=== PATIENT | female | born 1940 | race Caucasian/White ===

== ENCOUNTER 2019-04-29 04:00 | Inpatient (IN) | payer MEDICARE, MEDICAID ==
[~2019-04-29] VITALS: Ht 172.7 cm; Wt 101.5 kg
[2019-04-29] MEDS ORDERED: LACTC PO (04:16)
[2019-04-29] MEDS ORDERED: AMOX500C2 PO (04:25)
[2019-04-29] MEDS ORDERED: POTA-82 PO (04:25)
[2019-04-29] MEDS ORDERED: SENN-25 PO (04:25)
[2019-04-29] MEDS ORDERED: SENN-162 PO (04:25)
[2019-04-29] MEDS ORDERED: AZIT-63 PO (04:25)
[2019-04-29] MEDS ORDERED: SERT25TA PO (04:25)
[2019-04-29] MEDS ORDERED: RIVA15TA PO (04:25)
[2019-04-29] MEDS ORDERED: XAL0.005OS EACHEYE (04:25)
[2019-04-29] MEDS ORDERED: ASCO500T8 PO (04:25)
[2019-04-29] MEDS ORDERED: MULT-933 PO (04:25)
--- NOTE | 2019-04-29 04:40 | NUR ---
pt denies new complaint. states she just feels tired and weak but has felt this way for so long she can't remember the last time she felt normal. lights are dimmed and warm blankets given. will continue to monitor
[2019-04-29] MEDS ORDERED: ATOR40TA PO (04:54)
[2019-04-29] MEDS ORDERED: CARB1TAB23 PO (04:54)
[2019-04-29] MEDS ORDERED: LEVO75TA7 PO (04:54)
[2019-04-29] MEDS ORDERED: FURO-149 PO (04:54)
[2019-04-29] MEDS ORDERED: FOLI0.4T2 PO (04:54)
[2019-04-29] MEDS ORDERED: FERR325T28 PO (04:54)
[2019-04-29] MEDS ORDERED: DOCU-169 PO (04:54)
[2019-04-29] MEDS ORDERED: GUAI200T5 PO (04:54)
[2019-04-29] MEDS ORDERED: CYAN250T PO (04:54)
[2019-04-29] MEDS ORDERED: IPRA3AMP9 IH (04:54)
[2019-04-29] MEDS ORDERED: ipratropium/albuterol 3ml nebule IH PRN (05:05)
--- NOTE | 2019-04-29 05:09 | NUR ---
PT RESTING INTERMITTENTLY. SHE HAS PRODUCTIVE COUGH. WILL SPEAK TO MD ABOUT POSSIBLE COUGH SUPRESSENT.
[2019-04-29] MEDS ORDERED: magnesium hydroxide 30ml (MOM) UD suspension PO PRN (05:10)
[2019-04-29] MEDS ORDERED: morphine 2 MG/ML inj. syringe IV PRN (05:10)
[2019-04-29] MEDS ORDERED: ondansetron/PF 4mg/2ml inj IV PRN (05:10)
[2019-04-29] MEDS ORDERED: mag hydrox/Alum hydrox/simeth 30ml oral suspension PO PRN (05:10)
[2019-04-29] MEDS ORDERED: acetaminophen 325mg tablet PO PRN (05:10)
[2019-04-29 05:22] LABS: BASOPHILS % (AUTO) 0.3 % (0-1); EOSINOPHILS # (AUTO) 0.1 X10'3 (0-0.9); EOSINOPHILS % (AUTO) 1.1 % (0-6); HEMOGLOBIN 11.7 g/dl (12.0-16.0); LYMPHOCYTES % (AUTO) 9.6 % (21-51); MEAN CORPUSCULAR HEMOGLOBIN 31.5 PG (27.0-31.0); MEAN CORPUSCULAR HGB CONC 34.3 g/dL (33.0-36.5); MEAN CORPUSCULAR VOLUME 91.9 FL (78-98); MEAN PLATELET VOLUME 11.1 FL (7.4-10.4); MONOCYTES % (AUTO) 10.1 % (2-12); NEUTROPHILS # (AUTO) 8.1 X10'3 (1.8-7.7); NEUTROPHILS % (AUTO) 78.9 % (42-75); PLATELET COUNT 178 X10'3 (140-440); RED CELL DISTRIBUTION WIDTH 15.2 % (11.5-14.5); WHITE BLOOD COUNT 10.2 X10'3 (4.5-11.0)
[2019-04-29] MEDS ORDERED: benzonatate 100mg capsule PO ONE (05:25)
[2019-04-29 05:36] LABS: ALANINE AMINOTRANSFERASE 18 U/L (12-78); ALBUMIN 3.1 G/DL (3.4-5.0); ALBUMIN/GLOBULIN RATIO 0.8 (1.1-1.5); ALKALINE PHOSPHATASE 125 IU/L (46-116); ANION GAP 10 (8-16); ASPARTATE AMINO TRANSFERASE 29 U/L (10-37); BILIRUBIN,TOTAL 0.6 MG/DL (0.1-1.0); BLOOD UREA NITROGEN 26 MG/DL (7-18); BUN/CREATININE RATIO 19.8 (6.6-38.0); CALCIUM 8.2 MG/DL (8.5-10.1); CHLORIDE 106 MMOL/L (99-107); CREATININE 1.31 MG/DL (0.40-0.90); GLUCOSE 126 MG/DL (70-104); POTASSIUM 4.3 MMOL/L (3.5-5.1); SODIUM 139 MMOL/L (135-145); TOTAL CARBON DIOXIDE 22.6 MMOL/L (24-32); TOTAL PROTEIN 7.1 G/DL (6.4-8.2); eGFR 39 ML/MIN
--- NOTE | 2019-04-29 05:36 | NUR ---
Rec'd report from AMALIA Motta in the ER.
[2019-04-29 05:52] LABS: LARGE PLATELETS FEW; PLATELET ESTIMATE NORMAL
--- NOTE | 2019-04-29 05:59 | NUR ---
Patient arrived from ER on [facility] and transferred to hospital bed using a slide board. She is A&O x3 and is appropriate, she has a moist cough and it weak.
--- NOTE | 2019-04-29 06:00 | NUR ---
Patient in room PCU 3022. I have received report from Rekha HOLLAND and had the opportunity to ask questions and assume patient care.
[2019-04-29 06:01] VITALS: BP 164/47
--- NOTE | 2019-04-29 06:26 | NUR ---
Problems reprioritized. Patient report given, questions answered & plan of care reviewed with AMALIA Das.
--- NOTE | 2019-04-29 07:14 | NUR ---
Paged KWABENA nurse to KWABENA patient
[2019-04-29] MEDS: carbidoba-levodopa 25-100mg tablet PO SCH ×3 (07:30→17:46)
[2019-04-29] MEDS ORDERED: rivaroxaban 15mg tablet PO SCH (08:00)
[2019-04-29] MEDS: docusate sod 100mg capsule PO SCH (08:00)
[2019-04-29] MEDS: sennosides 8.6mg tablet PO SCH ×2 (08:00→20:37)
[2019-04-29] MEDS: guaiFENesin ER 600mg tablet PO SCH ×2 (09:14→20:37)
[2019-04-29] MEDS: multivitamins, therapeutics tablet PO SCH (09:14)
[2019-04-29] MEDS: potassium Cl 20 mEq SR tablet PO SCH (09:15)
[2019-04-29] MEDS: lactobacillus rhamnosus 10,000 MMU CELLS/CAPSULE PO SCH ×2 (09:17→20:37)
[2019-04-29] MEDS: cyanocobalamin 500mcg tablet PO SCH (09:17)
[2019-04-29] MEDS: folic acid 0.4mg tablet PO SCH (09:18)
[2019-04-29] MEDS: furosemide 40mg tablet PO SCH (09:19)
[2019-04-29] MEDS: levoTHYROXINE 75mcg tablet PO SCH (09:19)
[2019-04-29] MEDS: ferrous sulfate 325mg tablet PO SCH (09:19)
[2019-04-29] MEDS: ascorbic acid 500mg tablet PO SCH (09:20)
[2019-04-29] MEDS: sertraline 25mg tablet PO SCH (09:24)
[2019-04-29] MEDS: amoxicillin 250mg capsule PO SCH ×2 (09:24→14:11)
[2019-04-29 11:00] VITALS: BP 141/52
[2019-04-29 15:00] VITALS: BP 140/49
[2019-04-29] MEDS ORDERED: ipratropium/albuterol 3ml nebule NEB PRN (15:10)
[2019-04-29] MEDS: CefTRIAXone 2gm/D5W 50ml 50 ML IV SCH (17:46)
[2019-04-29 18:00] VITALS: BP 122/41
--- NOTE | 2019-04-29 18:30 | NUR ---
Patient in room PCU 3022. I have received report from Kylee and had the opportunity to ask questions and assume patient care. Family at bedside. Pt lying in bed in no distress. A&Ox4.
--- NOTE | 2019-04-29 18:46 | NUR ---
Problems reprioritized. Patient report given, questions answered & plan of care reviewed with Rekha HOLLAND and Mignon RN.
--- NOTE | 2019-04-29 18:47 | NUR ---
Patient in room PCU 3022. I have received report from AMALIA Pichardo and had the opportunity to ask questions and assume patient care. Patient resting comfortable on hospital bed, family at bedside.
[2019-04-29] MEDS: atorvastatin 20mg tablet PO SCH (20:37)
[2019-04-29] MEDS: enoxaparin 80mg/0.8ml syringe SUBCUT SCH (20:38)
[2019-04-29] MEDS: latanoprost 0.005% 2.5ml ophthalmic drops EACHEYE SCH (21:00)
[2019-04-29 22:00] VITALS: BP 115/50
[2019-04-29] MEDS: ipratropium/albuterol 3ml nebule NEB SCH (22:13)
[2019-04-30 02:00] VITALS: BP 122/44
[2019-04-30 05:29] LABS: BASOPHILS % (AUTO) 0.5 % (0-1); EOSINOPHILS # (AUTO) 0.2 X10'3 (0-0.9); HEMATOCRIT 32.9 % (35.0-45.0); HEMOGLOBIN 11.2 g/dl (12.0-16.0); LYMPHOCYTES # (AUTO) 1.1 X10'3 (1.1-4.8); LYMPHOCYTES % (AUTO) 15.4 % (21-51); MEAN CORPUSCULAR HEMOGLOBIN 31.2 PG (27.0-31.0); MEAN CORPUSCULAR VOLUME 91.9 FL (78-98); MEAN PLATELET VOLUME 10.6 FL (7.4-10.4); MONOCYTES # (AUTO) 0.7 X10'3 (0-0.9); MONOCYTES % (AUTO) 9.7 % (2-12); NEUTROPHILS # (AUTO) 5.2 X10'3 (1.8-7.7); NEUTROPHILS % (AUTO) 71.4 % (42-75); PLATELET COUNT 185 X10'3 (140-440); RED BLOOD COUNT 3.58 X10'6 (4.20-5.60); WHITE BLOOD COUNT 7.3 X10'3 (4.5-11.0)
[2019-04-30 05:38] LABS: CHLORIDE 109 MMOL/L (99-107); GLUCOSE 97 MG/DL (70-104); POTASSIUM 3.9 MMOL/L (3.5-5.1); SODIUM 144 MMOL/L (135-145); TOTAL CARBON DIOXIDE 25.4 MMOL/L (24-32)
[2019-04-30 05:39] LABS: ALBUMIN 2.8 G/DL (3.4-5.0); ANION GAP 10 (8-16); BLOOD UREA NITROGEN 23 MG/DL (7-18); BUN/CREATININE RATIO 17.3 (6.6-38.0); CALCIUM 8.6 MG/DL (8.5-10.1); CREATININE 1.33 MG/DL (0.40-0.90); MAGNESIUM 2.1 MG/DL (1.5-2.4); eGFR 38 ML/MIN
[2019-04-30 06:00] VITALS: BP 121/61
--- NOTE | 2019-04-30 06:14 | NUR ---
Problems reprioritized. Patient report given, questions answered & plan of care reviewed with AMALIA Pichardo.
--- NOTE | 2019-04-30 06:25 | NUR ---
Patient in room PCU 3022. I have received report from Rekha RN and Mignon RN and had the opportunity to ask questions and assume patient care.
[2019-04-30] MEDS: cyanocobalamin 500mcg tablet PO SCH (07:29)
[2019-04-30] MEDS: CefTRIAXone 2gm/D5W 50ml 50 ML IV SCH (07:29)
[2019-04-30] MEDS: levoTHYROXINE 75mcg tablet PO SCH (07:30)
[2019-04-30] MEDS: lactobacillus rhamnosus 10,000 MMU CELLS/CAPSULE PO SCH ×2 (07:30→20:21)
[2019-04-30] MEDS: multivitamins, therapeutics tablet PO SCH (07:31)
[2019-04-30] MEDS: guaiFENesin ER 600mg tablet PO SCH ×2 (07:31→20:20)
[2019-04-30] MEDS: sertraline 25mg tablet PO SCH (07:31)
[2019-04-30] MEDS: carbidoba-levodopa 25-100mg tablet PO SCH ×3 (07:31→17:49)
[2019-04-30] MEDS: ascorbic acid 500mg tablet PO SCH (07:31)
[2019-04-30] MEDS: furosemide 40mg tablet PO SCH (07:31)
[2019-04-30] MEDS: ferrous sulfate 325mg tablet PO SCH (07:31)
[2019-04-30] MEDS: folic acid 0.4mg tablet PO SCH (07:31)
[2019-04-30] MEDS: sennosides 8.6mg tablet PO SCH ×2 (07:54→21:00)
[2019-04-30] MEDS: docusate sod 100mg capsule PO SCH (07:54)
[2019-04-30] MEDS: enoxaparin 80mg/0.8ml syringe SUBCUT SCH ×2 (07:54→20:20)
[2019-04-30] MEDS: ipratropium/albuterol 3ml nebule NEB SCH ×3 (08:40→20:25)
[2019-04-30 08:43] LABS: LARGE PLATELETS FEW; PLATELET ESTIMATE NORMAL
[2019-04-30 11:00] VITALS: BP 138/40
[2019-04-30 15:00] VITALS: BP 144/36
--- NOTE | 2019-04-30 18:30 | NUR ---
Patient in room PCU 3022. I have received report from Kylee HOLLAND and had the opportunity to ask questions and assume patient care.
[2019-04-30 19:00] VITALS: BP 138/38
--- NOTE | 2019-04-30 19:02 | NUR ---
04/29/19 late afternoon, patient's daughter at bedside with MD present to discuss code status. Patient and family considering limited code. Patient verbalized fear of injury during chest compressions which had put her off of choosing to be a full code. Patient and family was educated on the different code statuses and provided with educational materials. MD gave verbal ok to keep patient on defib pads with zole at bedside. Patient and family was encouraged to take their time in making a decision on code status and has still been DNR since this conversation. Family was present at bedside throughout today, 04/30. Neither patient nor family re-opened conversation regarding code status.
--- NOTE | 2019-04-30 19:08 | NUR ---
Problems reprioritized. Patient report given, questions answered & plan of care reviewed with Robe RN.
[2019-04-30] MEDS: atorvastatin 20mg tablet PO SCH (20:21)
[2019-04-30] MEDS: latanoprost 0.005% 2.5ml ophthalmic drops EACHEYE SCH (21:00)
[2019-04-30 23:00] VITALS: BP 118/43
[2019-05-01] VITALS (13 sets, daily range): BP systolic 117–163; BP diastolic 46–66
[2019-05-01 06:06] LABS: BASOPHILS % (AUTO) 0.5 % (0-1); EOSINOPHILS # (AUTO) 0.2 X10'3 (0-0.9); EOSINOPHILS % (AUTO) 2.5 % (0-6); HEMATOCRIT 34.8 % (35.0-45.0); HEMOGLOBIN 11.6 g/dl (12.0-16.0); LYMPHOCYTES # (AUTO) 0.9 X10'3 (1.1-4.8); LYMPHOCYTES % (AUTO) 12.1 % (21-51); MEAN CORPUSCULAR HEMOGLOBIN 30.9 PG (27.0-31.0); MEAN CORPUSCULAR HGB CONC 33.3 g/dL (33.0-36.5); MEAN CORPUSCULAR VOLUME 92.6 FL (78-98); MEAN PLATELET VOLUME 10.6 FL (7.4-10.4); MONOCYTES # (AUTO) 0.8 X10'3 (0-0.9); MONOCYTES % (AUTO) 10.8 % (2-12); NEUTROPHILS # (AUTO) 5.4 X10'3 (1.8-7.7); NEUTROPHILS % (AUTO) 74.1 % (42-75); PLATELET COUNT 191 X10'3 (140-440); RED BLOOD COUNT 3.75 X10'6 (4.20-5.60); RED CELL DISTRIBUTION WIDTH 15.2 % (11.5-14.5); WHITE BLOOD COUNT 7.2 X10'3 (4.5-11.0)
--- NOTE | 2019-05-01 06:10 | NUR ---
Problems reprioritized. Patient report given, questions answered & plan of care reviewed with Nay HOLLAND.
[2019-05-01 06:38] LABS: LARGE PLATELETS FEW; PLATELET ESTIMATE NORMAL
--- NOTE | 2019-05-01 06:38 | NUR ---
Patient in room PCU 3022. I have received report from Robe RN and had the opportunity to ask questions and assume patient care.
[2019-05-01 06:39] LABS: ELLIPTOCYTES 1+
[2019-05-01 07:07] LABS: ALBUMIN 2.8 G/DL (3.4-5.0); ANION GAP 11 (8-16); BLOOD UREA NITROGEN 20 MG/DL (7-18); BUN/CREATININE RATIO 16.3 (6.6-38.0); CALCIUM 8.2 MG/DL (8.5-10.1); CHLORIDE 107 MMOL/L (99-107); CREATININE 1.23 MG/DL (0.40-0.90); GLUCOSE 100 MG/DL (70-104); POTASSIUM 3.7 MMOL/L (3.5-5.1); SODIUM 143 MMOL/L (135-145); TOTAL CARBON DIOXIDE 24.9 MMOL/L (24-32); eGFR 42 ML/MIN
[2019-05-01] MEDS: docusate sod 100mg capsule PO SCH (08:00)
[2019-05-01] MEDS: sennosides 8.6mg tablet PO SCH ×2 (08:00→21:57)
[2019-05-01] MEDS: CefTRIAXone 2gm/D5W 50ml 50 ML IV SCH (08:04)
[2019-05-01] MEDS: carbidoba-levodopa 25-100mg tablet PO SCH ×3 (08:05→22:02)
[2019-05-01] MEDS: furosemide 40mg tablet PO SCH (08:05)
[2019-05-01] MEDS: multivitamins, therapeutics tablet PO SCH (08:05)
[2019-05-01] MEDS: ferrous sulfate 325mg tablet PO SCH (08:06)
[2019-05-01] MEDS: potassium Cl 20 mEq SR tablet PO SCH (08:06)
[2019-05-01] MEDS: sertraline 25mg tablet PO SCH (08:06)
[2019-05-01] MEDS: cyanocobalamin 500mcg tablet PO SCH (08:06)
[2019-05-01] MEDS: guaiFENesin ER 600mg tablet PO SCH ×2 (08:06→21:55)
[2019-05-01] MEDS: levoTHYROXINE 75mcg tablet PO SCH (08:07)
[2019-05-01] MEDS: ascorbic acid 500mg tablet PO SCH (08:07)
[2019-05-01] MEDS: folic acid 0.4mg tablet PO SCH (08:09)
[2019-05-01] MEDS: lactobacillus rhamnosus 10,000 MMU CELLS/CAPSULE PO SCH ×2 (08:10→21:56)
[2019-05-01] MEDS: enoxaparin 80mg/0.8ml syringe SUBCUT SCH ×2 (08:13→21:55)
[2019-05-01] MEDS: ipratropium/albuterol 3ml nebule NEB SCH ×3 (09:11→21:22)
--- NOTE | 2019-05-01 10:36 | NUR ---
Spoke with Dr. Hdz regarding patient's decision to move forward with receiving pacemaker. Lovenox to now be held.
[2019-05-01 15:45] LABS: PARTIAL THROMBOPLASTIN TIME 37 SECONDS (22-32)
[2019-05-01] MEDS ORDERED: LIDOcaine 1% W/epiNEPHrine 1:100,000 20ml vial ONE (16:20)
[2019-05-01] MEDS ORDERED: midazolam 2 mg/2 ml injection ONE ×2 (16:20→17:28)
[2019-05-01] MEDS ORDERED: ceFAZolin 1000mg inj ONE (16:20)
[2019-05-01] MEDS ORDERED: fentaNYL/PF 50MCG/1 ML 2ML syringe ONE (16:20)
--- NOTE | 2019-05-01 17:15 | NUR ---
Problems reprioritized. Patient report given, questions answered & plan of care reviewed with Louisa HOLLAND.
[2019-05-01] MEDS ORDERED: iohexol 350 MG/ML 50ML vial IV ONE (17:19)
[2019-05-01] MEDS: morphine 2 MG/ML inj. syringe IV PRN ×2 (19:20→22:04)
[2019-05-01] MEDS: latanoprost 0.005% 2.5ml ophthalmic drops EACHEYE SCH (21:00)
[2019-05-01] MEDS: atorvastatin 20mg tablet PO SCH (21:56)
[2019-05-01] MEDS ORDERED: normal saline 500ml IV soln 500 ML IV ONE (22:30)
[2019-05-01] MEDS ORDERED: vancomycin/NS 1 GM ADD-VANTAGE 250 ML X 1 DOSE IV ONE (22:30)
[2019-05-01] MEDS: HYDROcodone/acetaminophen 10/325mg tab PO PRN (22:34)
[2019-05-02] VITALS (8 sets, daily range): BP systolic 99–152; BP diastolic 44–67
[2019-05-02] MEDS: morphine 2 MG/ML inj. syringe IV PRN ×2 (00:05→08:39)
[2019-05-02 04:55] LABS: ALBUMIN 2.7 G/DL (3.4-5.0); ANION GAP 9 (8-16); BLOOD UREA NITROGEN 16 MG/DL (7-18); BUN/CREATININE RATIO 13.2 (6.6-38.0); CALCIUM 8.4 MG/DL (8.5-10.1); CHLORIDE 107 MMOL/L (99-107); CREATININE 1.21 MG/DL (0.40-0.90); GLUCOSE 118 MG/DL (70-104); MAGNESIUM 1.8 MG/DL (1.5-2.4); POTASSIUM 3.6 MMOL/L (3.5-5.1); SODIUM 141 MMOL/L (135-145); TOTAL CARBON DIOXIDE 24.7 MMOL/L (24-32); eGFR 43 ML/MIN
[2019-05-02 04:59] LABS: BASOPHILS % (AUTO) 0.2 % (0-1); EOSINOPHILS % (AUTO) 0.2 % (0-6); HEMATOCRIT 33.6 % (35.0-45.0); HEMOGLOBIN 11.4 g/dl (12.0-16.0); LYMPHOCYTES # (AUTO) 0.5 X10'3 (1.1-4.8); LYMPHOCYTES % (AUTO) 4.8 % (21-51); MEAN CORPUSCULAR HEMOGLOBIN 30.8 PG (27.0-31.0); MEAN CORPUSCULAR VOLUME 90.5 FL (78-98); MEAN PLATELET VOLUME 9.8 FL (7.4-10.4); MONOCYTES % (AUTO) 9.3 % (2-12); NEUTROPHILS # (AUTO) 9.6 X10'3 (1.8-7.7); NEUTROPHILS % (AUTO) 85.5 % (42-75); PLATELET COUNT 204 X10'3 (140-440); RED BLOOD COUNT 3.71 X10'6 (4.20-5.60); RED CELL DISTRIBUTION WIDTH 14.7 % (11.5-14.5); WHITE BLOOD COUNT 11.3 X10'3 (4.5-11.0)
[2019-05-02] MEDS: nystatin 15 GM powder TP PRN ×2 (05:30→20:43)
--- NOTE | 2019-05-02 06:10 | NUR ---
Patient in room MED 313. I have received report from Linus HOLLAND and Page HOLLAND and had the opportunity to ask questions and assume patient care.
--- NOTE | 2019-05-02 06:31 | NUR ---
Problems reprioritized. Patient report given, questions answered & plan of care reviewed with Marisela HOLLAND.
--- NOTE | 2019-05-02 06:33 | NUR ---
[place]rientee documentation: I have reviewed and agree with all interventions, assessments performed and documented by Page HOLLAND .
--- NOTE | 2019-05-02 06:34 | NUR ---
Problems reprioritized. Patient report given, questions answered & plan of care reviewed with Rivas HOLLAND.
[2019-05-02] MEDS: ipratropium/albuterol 3ml nebule NEB SCH ×3 (06:48→20:58)
[2019-05-02] MEDS: enoxaparin 80mg/0.8ml syringe SUBCUT SCH (08:00)
[2019-05-02] MEDS: CefTRIAXone 2gm/D5W 50ml 50 ML IV SCH (08:40)
[2019-05-02] MEDS: cyanocobalamin 500mcg tablet PO SCH (08:41)
[2019-05-02] MEDS: ascorbic acid 500mg tablet PO SCH (08:42)
[2019-05-02] MEDS: sennosides 8.6mg tablet PO SCH ×2 (08:42→20:43)
[2019-05-02] MEDS: folic acid 1mg tablet PO SCH (08:42)
[2019-05-02] MEDS: carbidoba-levodopa 25-100mg tablet PO SCH ×3 (08:42→17:34)
[2019-05-02] MEDS: multivitamins, therapeutics tablet PO SCH (08:42)
[2019-05-02] MEDS: lactobacillus rhamnosus 10,000 MMU CELLS/CAPSULE PO SCH ×2 (08:42→20:43)
[2019-05-02] MEDS: guaiFENesin ER 600mg tablet PO SCH ×2 (08:43→20:43)
[2019-05-02] MEDS: levoTHYROXINE 75mcg tablet PO SCH (08:43)
[2019-05-02] MEDS: sertraline 25mg tablet PO SCH (08:43)
[2019-05-02] MEDS: docusate sod 100mg capsule PO SCH (08:43)
[2019-05-02] MEDS: furosemide 40mg tablet PO SCH (08:43)
[2019-05-02] MEDS: ferrous sulfate 325mg tablet PO SCH (08:43)
--- NOTE | 2019-05-02 10:30 | NUR ---
DISCHARGE FOLLOW-UP APPOINTMENTS DR. GRANT 05/07/19 @ 1415 FOR SUTURE REMOVAL; 06/03/19 @ 1015 FOR 1 MONTH PPM CHECK; 08/04/2019 @ 1045 FOR 3 MONTH PPM CHECK
[2019-05-02] MEDS: HYDROcodone/acetaminophen 10/325mg tab PO PRN (13:47)
--- NOTE | 2019-05-02 13:56 | NUR ---
Patient in room MED 313. I have received report from Keyana HOLLAND and had the opportunity to ask questions and assume patient care. Addendum: 05/02/19 at 1357 by Marisela Guido RN ERROR- wrong patient chart
--- NOTE | 2019-05-02 18:10 | NUR ---
Problems reprioritized. Patient report given, questions answered & plan of care reviewed with Linus RN and Page HOLLAND.
--- NOTE | 2019-05-02 18:20 | NUR ---
Patient in room MED 313. I have received report from Marisela HOLLAND and had the opportunity to ask questions and assume patient care.
--- NOTE | 2019-05-02 20:23 | NUR ---
Patient in room MED 313. I have received report from Rosa HOLLAND and had the opportunity to ask questions and assume patient care. Addendum: 05/02/19 at 2026 by Linus Henriquez RN Report received from Marisela HOLLAND
[2019-05-02] MEDS: atorvastatin 20mg tablet PO SCH (20:43)
[2019-05-02] MEDS: latanoprost 0.005% 2.5ml ophthalmic drops EACHEYE SCH (21:00)
[2019-05-03 02:00] VITALS: BP 133/59
[2019-05-03 03:11] LABS: BASOPHILS % (AUTO) 0.4 % (0-1); EOSINOPHILS # (AUTO) 0.1 X10'3 (0-0.9); EOSINOPHILS % (AUTO) 2.1 % (0-6); HEMOGLOBIN 11.6 g/dl (12.0-16.0); LYMPHOCYTES # (AUTO) 0.9 X10'3 (1.1-4.8); LYMPHOCYTES % (AUTO) 12.5 % (21-51); MEAN CORPUSCULAR HGB CONC 33.9 g/dL (33.0-36.5); MEAN CORPUSCULAR VOLUME 91.3 FL (78-98); MEAN PLATELET VOLUME 9.3 FL (7.4-10.4); MONOCYTES # (AUTO) 0.7 X10'3 (0-0.9); MONOCYTES % (AUTO) 9.5 % (2-12); NEUTROPHILS # (AUTO) 5.3 X10'3 (1.8-7.7); NEUTROPHILS % (AUTO) 75.5 % (42-75); PLATELET COUNT 199 X10'3 (140-440); RED BLOOD COUNT 3.73 X10'6 (4.20-5.60); RED CELL DISTRIBUTION WIDTH 14.8 % (11.5-14.5); WHITE BLOOD COUNT 7.1 X10'3 (4.5-11.0)
[2019-05-03 03:18] LABS: ALBUMIN 2.8 G/DL (3.4-5.0); ANION GAP 10 (8-16); BLOOD UREA NITROGEN 18 MG/DL (7-18); BUN/CREATININE RATIO 14.5 (6.6-38.0); CALCIUM 8.3 MG/DL (8.5-10.1); CHLORIDE 105 MMOL/L (99-107); CREATININE 1.24 MG/DL (0.40-0.90); GLUCOSE 108 MG/DL (70-104); MAGNESIUM 1.8 MG/DL (1.5-2.4); POTASSIUM 3.4 MMOL/L (3.5-5.1); SODIUM 141 MMOL/L (135-145); TOTAL CARBON DIOXIDE 26.1 MMOL/L (24-32); eGFR 42 ML/MIN
[2019-05-03 06:00] VITALS: BP 131/60
--- NOTE | 2019-05-03 06:30 | NUR ---
Problems reprioritized. Patient report given, questions answered & plan of care reviewed with Silvia HOLLAND.
--- NOTE | 2019-05-03 06:33 | NUR ---
Problems reprioritized. Patient report given, questions answered & plan of care reviewed with Silvia HOLLAND.
--- NOTE | 2019-05-03 06:34 | NUR ---
[place] documentation: I have reviewed and agree with interventions, assessments performed and documented by Page Whatley .
--- NOTE | 2019-05-03 06:35 | NUR ---
[place] Medication Administration: For this medication-pass time frame medication were reviewed, dispensed, administered and documented per hospital policy by Page Whatley .
[2019-05-03] MEDS: HYDROcodone/acetaminophen 10/325mg tab PO PRN ×2 (08:31→22:38)
[2019-05-03] MEDS: CefTRIAXone 2gm/D5W 50ml 50 ML IV SCH (08:41)
[2019-05-03] MEDS: carbidoba-levodopa 25-100mg tablet PO SCH ×3 (08:41→21:42)
[2019-05-03] MEDS: ferrous sulfate 325mg tablet PO SCH (08:41)
[2019-05-03] MEDS: ascorbic acid 500mg tablet PO SCH (08:42)
[2019-05-03] MEDS: multivitamins, therapeutics tablet PO SCH (08:42)
[2019-05-03] MEDS: docusate sod 100mg capsule PO SCH (08:42)
[2019-05-03] MEDS: sennosides 8.6mg tablet PO SCH ×2 (08:42→20:29)
[2019-05-03] MEDS: sertraline 25mg tablet PO SCH (08:43)
[2019-05-03] MEDS: lactobacillus rhamnosus 10,000 MMU CELLS/CAPSULE PO SCH ×2 (08:43→20:29)
[2019-05-03] MEDS: folic acid 1mg tablet PO SCH (08:44)
[2019-05-03] MEDS: levoTHYROXINE 75mcg tablet PO SCH (08:44)
[2019-05-03] MEDS: potassium Cl 20 mEq SR tablet PO SCH (08:45)
[2019-05-03] MEDS: furosemide 40mg tablet PO SCH (08:45)
[2019-05-03] MEDS: guaiFENesin ER 600mg tablet PO SCH ×2 (08:46→20:29)
[2019-05-03] MEDS: cyanocobalamin 500mcg tablet PO SCH (09:03)
[2019-05-03] MEDS: ipratropium/albuterol 3ml nebule NEB SCH ×3 (09:13→19:13)
[2019-05-03 11:00] VITALS: BP 114/57
--- NOTE | 2019-05-03 12:17 | NUR ---
PAGER ID: [phone] MESSAGE: [phone]: [facility] - anxious to D/C back to [facility]. Wilder onofre for D/C, needs to be on abx x5 days post d/c. ty Silvia [phone]
[2019-05-03] MEDS: magnesium oxide 400mg tablet PO SCH ×2 (13:19→20:29)
[2019-05-03] MEDS: HYDROcodone/acetaminophen 5mg/325mg tablet PO PRN (13:24)
[2019-05-03 15:00] VITALS: BP 113/57
[2019-05-03] MEDS: rivaroxaban 15mg tablet PO SCH (15:29)
--- NOTE | 2019-05-03 18:00 | NUR ---
Problems reprioritized. Patient report given, questions answered & plan of care reviewed with AMALIA Moreno.
--- NOTE | 2019-05-03 18:00 | NUR ---
Patient in room MED 313. I have received report from Silvia HOLLAND and had the opportunity to ask questions and assume patient care.
[2019-05-03 18:45] VITALS: BP 113/57
[2019-05-03] MEDS: atorvastatin 20mg tablet PO SCH (20:29)
[2019-05-03] MEDS: latanoprost 0.005% 2.5ml ophthalmic drops EACHEYE SCH (21:00)
[2019-05-03 22:00] VITALS: BP 112/48
[2019-05-04 02:00] VITALS: BP 113/45
[2019-05-04 04:57] LABS: BASOPHILS % (AUTO) 0.5 % (0-1); EOSINOPHILS # (AUTO) 0.3 X10'3 (0-0.9); EOSINOPHILS % (AUTO) 4.6 % (0-6); HEMATOCRIT 33.5 % (35.0-45.0); HEMOGLOBIN 11.4 g/dl (12.0-16.0); LYMPHOCYTES # (AUTO) 0.9 X10'3 (1.1-4.8); MEAN CORPUSCULAR HEMOGLOBIN 30.9 PG (27.0-31.0); MEAN CORPUSCULAR HGB CONC 34.1 g/dL (33.0-36.5); MEAN CORPUSCULAR VOLUME 90.7 FL (78-98); MEAN PLATELET VOLUME 9.4 FL (7.4-10.4); MONOCYTES # (AUTO) 0.7 X10'3 (0-0.9); MONOCYTES % (AUTO) 10.3 % (2-12); NEUTROPHILS # (AUTO) 4.6 X10'3 (1.8-7.7); NEUTROPHILS % (AUTO) 70.6 % (42-75); PLATELET COUNT 212 X10'3 (140-440); RED BLOOD COUNT 3.69 X10'6 (4.20-5.60); RED CELL DISTRIBUTION WIDTH 14.8 % (11.5-14.5); WHITE BLOOD COUNT 6.6 X10'3 (4.5-11.0)
[2019-05-04 05:07] LABS: ALBUMIN 2.6 G/DL (3.4-5.0); ANION GAP 8 (8-16); BLOOD UREA NITROGEN 20 MG/DL (7-18); BUN/CREATININE RATIO 16.4 (6.6-38.0); CALCIUM 8.2 MG/DL (8.5-10.1); CHLORIDE 106 MMOL/L (99-107); CREATININE 1.22 MG/DL (0.40-0.90); GLUCOSE 95 MG/DL (70-104); POTASSIUM 3.6 MMOL/L (3.5-5.1); SODIUM 141 MMOL/L (135-145); eGFR 42 ML/MIN
[2019-05-04 06:00] VITALS: BP 121/46
--- NOTE | 2019-05-04 06:00 | NUR ---
Problems reprioritized. Patient report given, questions answered & plan of care reviewed with Milagros RN's.
--- NOTE | 2019-05-04 06:05 | NUR ---
Patient in room MED 307. I have received report from AMALIA Moreno and had the opportunity to ask questions and assume patient care. Addendum: 05/04/19 at 1659 by Louisa Murray RN Room [facility]
[2019-05-04] MEDS: ipratropium/albuterol 3ml nebule NEB SCH ×3 (08:39→20:33)
[2019-05-04] MEDS: lactobacillus rhamnosus 10,000 MMU CELLS/CAPSULE PO SCH ×2 (08:43→20:20)
[2019-05-04] MEDS: folic acid 1mg tablet PO SCH (08:43)
[2019-05-04] MEDS: ferrous sulfate 325mg tablet PO SCH (08:43)
[2019-05-04] MEDS: CefTRIAXone 2gm/D5W 50ml 50 ML IV SCH (08:43)
[2019-05-04] MEDS: carbidoba-levodopa 25-100mg tablet PO SCH ×3 (08:43→17:46)
[2019-05-04] MEDS: docusate sod 100mg capsule PO SCH (08:43)
[2019-05-04] MEDS: cyanocobalamin 500mcg tablet PO SCH (08:44)
[2019-05-04] MEDS: furosemide 40mg tablet PO SCH (08:44)
[2019-05-04] MEDS: multivitamins, therapeutics tablet PO SCH (08:44)
[2019-05-04] MEDS: sertraline 25mg tablet PO SCH (08:44)
[2019-05-04] MEDS: sennosides 8.6mg tablet PO SCH ×2 (08:44→20:20)
[2019-05-04] MEDS: levoTHYROXINE 75mcg tablet PO SCH (08:44)
[2019-05-04] MEDS: rivaroxaban 15mg tablet PO SCH (08:44)
[2019-05-04] MEDS: guaiFENesin ER 600mg tablet PO SCH ×2 (08:44→20:20)
[2019-05-04] MEDS: ascorbic acid 500mg tablet PO SCH (08:44)
[2019-05-04] MEDS: magnesium oxide 400mg tablet PO SCH ×3 (08:45→21:00)
[2019-05-04 11:00] VITALS: BP 124/54
--- NOTE | 2019-05-04 11:07 | NUR ---
PAGER ID: [phone] MESSAGE: [phone] [facility] - d/c to SNF is time sensitive. counter caser is checking w/ facility if there is a cut-off time for admissions into their facility. nurse Marisela [phone]
--- NOTE | 2019-05-04 11:42 | NUR ---
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 PO fluctuates 50-75% avg meals good PO given age. LBM 05/03 receiving iron, colace, and senna. Will continue to monitor. Rec: 1. continue regular diet 2. routine bowel care 3. monitor for ONS needs if PO declines 4. wt per rx Addendum: 05/04/19 at [address] Amended: Links added.
[2019-05-04] MEDS: HYDROcodone/acetaminophen 10/325mg tab PO PRN ×2 (12:37→18:37)
[2019-05-04 15:00] VITALS: BP 113/57
--- NOTE | 2019-05-04 17:39 | NUR ---
[place]rientee documentation and med administration: I have reviewed and agree with all interventions, assessments performed and documented by Louisa HOLLAND.
--- NOTE | 2019-05-04 17:54 | NUR ---
Problems reprioritized. Patient report given, questions answered & plan of care reviewed with AMALIA Gao.
[2019-05-04 18:00] VITALS: BP 137/56
--- NOTE | 2019-05-04 18:25 | NUR ---
Patient in room MED 313. I have received report from AMALIA Jasso and had the opportunity to ask questions and assume patient care.
[2019-05-04] MEDS: atorvastatin 20mg tablet PO SCH (20:20)
[2019-05-04] MEDS: latanoprost 0.005% 2.5ml ophthalmic drops EACHEYE SCH (20:31)
[2019-05-04 22:00] VITALS: BP 96/43
[2019-05-05 02:00] VITALS: BP 116/55
[2019-05-05 03:33] LABS: BASOPHILS % (AUTO) 0.4 % (0-1); EOSINOPHILS # (AUTO) 0.3 X10'3 (0-0.9); EOSINOPHILS % (AUTO) 4.7 % (0-6); HEMATOCRIT 33.6 % (35.0-45.0); HEMOGLOBIN 11.4 g/dl (12.0-16.0); LYMPHOCYTES # (AUTO) 0.8 X10'3 (1.1-4.8); LYMPHOCYTES % (AUTO) 11.4 % (21-51); MEAN CORPUSCULAR HEMOGLOBIN 31.1 PG (27.0-31.0); MEAN CORPUSCULAR HGB CONC 34.1 g/dL (33.0-36.5); MEAN CORPUSCULAR VOLUME 91.3 FL (78-98); MONOCYTES # (AUTO) 0.7 X10'3 (0-0.9); MONOCYTES % (AUTO) 9.8 % (2-12); NEUTROPHILS # (AUTO) 5.4 X10'3 (1.8-7.7); NEUTROPHILS % (AUTO) 73.7 % (42-75); PLATELET COUNT 216 X10'3 (140-440); RED BLOOD COUNT 3.67 X10'6 (4.20-5.60); RED CELL DISTRIBUTION WIDTH 14.7 % (11.5-14.5); WHITE BLOOD COUNT 7.3 X10'3 (4.5-11.0)
[2019-05-05 03:39] LABS: ALBUMIN 2.7 G/DL (3.4-5.0); ANION GAP 9 (8-16); BLOOD UREA NITROGEN 20 MG/DL (7-18); BUN/CREATININE RATIO 16.5 (6.6-38.0); CALCIUM 8.2 MG/DL (8.5-10.1); CHLORIDE 106 MMOL/L (99-107); CREATININE 1.21 MG/DL (0.40-0.90); GLUCOSE 99 MG/DL (70-104); POTASSIUM 3.5 MMOL/L (3.5-5.1); SODIUM 140 MMOL/L (135-145); TOTAL CARBON DIOXIDE 25.3 MMOL/L (24-32); eGFR 43 ML/MIN
[2019-05-05 06:00] VITALS: BP 123/58
--- NOTE | 2019-05-05 06:00 | NUR ---
Patient in room MED 313. I have received report from AMALIA Gao and had the opportunity to ask questions and assume patient care.
--- NOTE | 2019-05-05 06:17 | NUR ---
Problems reprioritized. Patient report given, questions answered & plan of care reviewed with AMALIA Mazariegos and AMALIA Jasso.
[2019-05-05] MEDS: lactobacillus rhamnosus 10,000 MMU CELLS/CAPSULE PO SCH (08:17)
[2019-05-05] MEDS: docusate sod 100mg capsule PO SCH (08:18)
[2019-05-05] MEDS: furosemide 40mg tablet PO SCH (08:18)
[2019-05-05] MEDS: multivitamins, therapeutics tablet PO SCH (08:18)
[2019-05-05] MEDS: potassium Cl 20 mEq SR tablet PO SCH (08:18)
[2019-05-05] MEDS: sertraline 25mg tablet PO SCH (08:18)
[2019-05-05] MEDS: folic acid 1mg tablet PO SCH (08:18)
[2019-05-05] MEDS: carbidoba-levodopa 25-100mg tablet PO SCH (08:18)
[2019-05-05] MEDS: ferrous sulfate 325mg tablet PO SCH (08:18)
[2019-05-05] MEDS: ascorbic acid 500mg tablet PO SCH (08:18)
[2019-05-05] MEDS: rivaroxaban 15mg tablet PO SCH (08:19)
[2019-05-05] MEDS: sennosides 8.6mg tablet PO SCH (08:19)
[2019-05-05] MEDS: HYDROcodone/acetaminophen 5mg/325mg tablet PO PRN (08:19)
[2019-05-05] MEDS: CefTRIAXone 2gm/D5W 50ml 50 ML IV SCH (08:19)
[2019-05-05] MEDS: guaiFENesin ER 600mg tablet PO SCH (08:19)
[2019-05-05] MEDS: levoTHYROXINE 75mcg tablet PO SCH (08:19)
[2019-05-05] MEDS: magnesium oxide 400mg tablet PO SCH (08:20)
[2019-05-05] MEDS: ipratropium/albuterol 3ml nebule NEB SCH (08:56)
--- NOTE | 2019-05-05 09:39 | NUR ---
Problems reprioritized. Patient report given, questions answered & plan of care reviewed with Jason nurse at [facility].
[2019-05-05] MEDS: cyanocobalamin 500mcg tablet PO SCH (09:43)
--- NOTE | 2019-05-05 10:29 | NUR ---
Per MD, patient stable for discharge. PIV removed, tip intact, pt tolerated well. ALL patient belongings gathered and sent with daughter. Discharge paperwork reviewed with and signed by daughter and patient. Patient picked up by [facility] ([facility]).
--- NOTE | 2019-05-05 10:34 | NUR ---
I have reviewed and agree with all interventions, assessments performed and documented by AMALIA Jasso.
== END 2019-05-05 10:20 | DRG 242 ==
LOC: ER 04:01 → ED HOLD 05:45 → PCU 3S 05:49 → OBSVTOIN 15:30 → INTOOBSV 15:30 → MED 3N 05-01 18:26
PROVIDERS: ADMIT Internal Medicine; ATTEND Hospitalist
PROC: 0JH604Z Insertion of Pacemaker, Single Chamber into Chest Subcutaneous Tissue and Fascia, Open Approach (ICD-10-PCS; principal; 2019-05-01)
PROC: 02HK3JZ Insertion of Pacemaker Lead into Right Ventricle, Percutaneous Approach (ICD-10-PCS; 2019-05-01)
DX: I49.5 Sick sinus syndrome (principal); J18.9 Pneumonia, unspecified organism; I50.32 Chronic diastolic (congestive) heart failure; N17.9 Acute kidney failure, unspecified; J44.0 Chronic obstructive pulmonary disease with (acute) lower respiratory infection; I13.0 Hypertensive heart and chronic kidney disease with heart failure and stage 1 through stage 4 chronic kidney disease, or unspecified chronic kidney disease; I48.20 Chronic atrial fibrillation, unspecified; E78.5 Hyperlipidemia, unspecified; F32.9 Major depressive disorder, single episode, unspecified; I48.0 Paroxysmal atrial fibrillation; E03.9 Hypothyroidism, unspecified; G20 Parkinson's disease; N18.3 Chronic kidney disease, stage 3 (moderate); I27.20 Pulmonary hypertension, unspecified; M19.90 Unspecified osteoarthritis, unspecified site; E66.9 Obesity, unspecified; Z66 Do not resuscitate; Z90.710 Acquired absence of both cervix and uterus; Z86.73 Personal history of transient ischemic attack (TIA), and cerebral infarction without residual deficits; Z68.34 Body mass index [BMI] 34.0-34.9, adult; Z79.01 Long term (current) use of anticoagulants; Z83.3 Family history of diabetes mellitus; Z79.899 Other long term (current) drug therapy
CPT/HCPCS: 33206; 36415; 71045; 76937; 80048; 80053; 83735; 83880; 84443; 85025; 85610; 85730; 87081; 93005; 93306; 94640; 94668; 94760; 97112; 97116; 97161; 97530; 99152; 99153; 99285; A4565; A4620; A6449; C1786; C1894; C1898; G0378; J0690; J0696; J1650; J2250; J2270; J2405; J3010; J3370; Q9967